=== PATIENT | male | born 1940 | race Caucasian/White ===

== ENCOUNTER 2020-02-03 16:02 | Inpatient (IN) ==
[2020-02-03 18:07] LABS: Hematocrit 46.7 % (40.1-51.0); Hemoglobin 15.3 g/dL (13.7-17.5); Mean Cell Volume 97.3 fL (80.0-100.0); Mean Corpuscular HGB Conc 32.8 g/dL (31.0-36.0); Mean Platelet Volume 8.6 fL (7.4-10.4); Platelet Count 205 K/mcL (140-440); Red Cell Distribution Width 14.1 % (11.5-14.5); WBC 7.8 K/mcL (4.50-11.00)
[2020-02-03 18:26] LABS: ALT/SGPT 34 U/l (0-40); AST/SGOT 28 U/l (0-37); Albumin 4.1 gm/dL (3.2-5.2); Albumin/Globulin Ratio 1.3 (1.0-2.3); Alkaline Phosphatase 227 U/L (39-117); Bilirubin,Total 0.5 mg/dL (0.0-1.0); Blood Urea Nitrogen 25 mg/dl (8-23); Calcium 9.1 mg/dl (8.6-10.4); Carbon Dioxide 27 mmol/L (22-30); Chloride 97 mmol/L (96-108); Globulin 3.2 gm/dL (2.2-3.7); Glomerular Filtration Rate 80; Glucose 85 mg/dL (70-105)
[2020-02-03 18:36] LABS: Basophils % (Manual) 1 % (0-2); Eosinophils % (Manual) 3 % (0-7); Lymphocytes % 4 % (15-49); Monocytes % (Manual) 12 % (1-12); Platelet Estimate NORMAL (NORMAL); RBC Morphology NORMAL (NORMAL); Reactive Lymphocytes 3 % (0-2); Segmented Neutrophils % 77 % (38-78)
[2020-02-03] MEDS ORDERED: cefTRIAXone 1 GM VIAL IV ONE (18:41)
--- NOTE | 2020-02-03 18:50 | Emergency Department Note ---
Lower Extremity Injury HPI General Chief Complaint: Extremity Injury, Lower Stated Complaint: left foot problem Time Seen by Provider: 02/03/20 16:13 Source: patient Mode of arrival: wheelchair Limitations: no limitations History of Present Illness HPI Narrative: Narrative: left great toe pain, black, and redness and swelling spreading up leg now. Has been seen at wound care and has appt in 2 days to have toe removed. Has gotten much worse in last couple days. Called wound care and they told him to come to ER. He does note significant pain to the affected toe and foot. No fever or chills. No nausea, vomiting, or diarrhea. Extremely foul odor coming from foot. Daughter states she just got here yesterday and was very concerned about the status of it. Related Data Home Medications Medication Instructions Recorded Confirmed diltiazem HCl 360 mg PO QDAY 01/29/20 01/29/20 furosemide 40 mg PO QDAY 01/29/20 01/29/20 magnesium oxide 400 mg PO QDAY 01/29/20 01/29/20 meclizine 25 mg PO BID PRN 01/29/20 01/29/20 multivitamin with minerals [Daily 1 tab PO QDAY 01/29/20 01/29/20 Multivitamin-Minerals] phenytoin sodium extended 300 mg PO DAILY 01/29/20 01/29/20 potassium chloride 10 meq PO QDAY 01/29/20 01/29/20 potassium gluconate 550 mg PO QDAY 01/29/20 01/29/20 tramadol 50 - 100 mg PO Q8H PRN 01/29/20 01/29/20 trazodone 50 mg PO QDAY 01/29/20 01/29/20 valsartan 80 mg PO QDAY 01/29/20 01/29/20 vit C,B-Gj-ywsby-lutein-zeaxan 1 tab PO BID 01/29/20 01/29/20 [PreserVision AREDS-2] warfarin 2 mg PO QDAY 01/29/20 01/29/20 Allergies Allergy/AdvReac Type Severity Reaction Status Date / Time No Known Drug Allergies Allergy Verified 02/03/20 16:04 Review of Systems ROS ROS Narrative: Narrative: All systems ED: reviewed and negative except as stated. PFSH Narrative Patient History Narrative: Narrative: Poor historian and no past medical records available currently. He denies being diabetic. Medical/Surgical/Family History All Active Problems (Updated 02/03/20 @ 18:59 by ROSEANNE Quiros) Smoker (Acute) Atrial fibrillation (Acute) Mitral stenosis (Acute) Sleep apnea (Acute) Hypertension (Acute) COPD (chronic obstructive pulmonary disease) (Acute) Alcoholism (Acute) Inguinal hernia, right (Acute) Seizure (Acute) Necrosis of toe (Acute) Left leg cellulitis (Acute) Social History Smoking Status: Heavy tobacco smoker Substance Use: does not use Exam Narrative Narrative: Narrative: General Limitations: no limitations General appearance: alert Head Head: atraumatic and normocephalic Chest Chest: Present symmetric chest wall rise Respiratory Respiratory: Present normal lung sounds bilaterally and wheezes (faint e xpiratory wheezes otherwise clear throughout. Smoker's cough); Absent respi ratory distress, rales/crackles, stridor and accessory muscle use Cardiovascular Cardiovascular: Present regular rate and normal rhythm Extremities Extremities: Absent normal inspection (Left foot and ankle with diffuse redness, swelling, and warmth throughout. Cap refill 2 seconds. The left great toe with extremely foul odor present and shriveled up and black) Neurological Neurological: Present alert and oriented X3 Psychiatric Psychiatric: Present normal affect and normal mood Course Course Course Narrative: At 1840 I did speak with Dr. jenny hernandez with wound care. He would like us to consult with the hospitalist to try to get this patient admitted and keep him n.p.o. after midnight, give him IV antibiotics, and plan for surgery in the morning. @ 1903 I did speak with hospitalist, Dr. Rea who agrees to accept this patient Vital Signs Vital signs: Vital Signs Temperature 96.6 F L 02/03/20 16:02 Pulse Rate 80 02/03/20 16:02 Respiratory Rate 16 02/03/20 16:02 Blood Pressure 136/65 02/03/20 16:02 Temperature 96.6 F L 02/03/20 16:02 Pulse Rate 80 02/03/20 16:02 Respiratory Rate 16 02/03/20 16:02 Blood Pressure 147/75 02/03/20 18:45 MDM MDM Narrative Medical decision making narrative: Narrative: Lab Data Lab results reviewed: Yes I reviewed the patient's lab results. Result diagrams: 02/03/20 17:16 02/03/20 17:16 Labs: Lab Results 02/03/20 02/03/20 02/03/20 Range/Units 17:16 17:16 17:16 WBC 7.8 (4.50-11.00) K/mcL RBC 4.80 (4.63-6.08) M/mcL Hgb 15.3 (13.7-17.5) g/dL Hct 46.7 (40.1-51.0) % MCV 97.3 (80.0-100.0) fL MCH 31.9 (26.0-34.0) pg MCHC 32.8 (31.0-36.0) g/dL RDW 14.1 (11.5-14.5) % Plt Count 205 (140-440) K/mcL MPV 8.6 (7.4-10.4) fL Total Counted 100 Seg Neutrophils % 77 (38-78) % Band Neutrophils % Not Reportable Lymphocytes % 4 L (15-49) % Monocytes % (Manual) 12 (1-12) % Eosinophils % (Manual) 3 (0-7) % Basophils % (Manual) 1 (0-2) % Reactive Lymphocytes 3 H (0-2) % Platelet Estimate Normal (NORMAL) RBC Morphology Normal (NORMAL) PT INR VBG Lactic Acid 1.2 (0.5-2.0) mmol/L Sodium 139 (133-145) mmol/L Potassium 4.4 (3.3-5.1) mmol/L Chloride 97 (96-108) mmol/L Carbon Dioxide 27 (22-30) mmol/L Anion Gap 15.0 (8-16) BUN 25 H (8-23) mg/dl Creatinine 0.9 (0.7-1.2) mg/dl GFR Calculation 80 Glucose 85 (70-105) mg/dL Calcium 9.1 (8.6-10.4) mg/dl Total Bilirubin 0.5 (0.0-1.0) mg/dL AST 28 (0-37) U/l ALT 34 (0-40) U/l Alkaline Phosphatase 227 H (39-117) U/L C-Reactive Protein 4.0 H (0.0-0.8) mg/dl Total Protein 7.3 (5.9-8.4) gm/dL Albumin 4.1 (3.2-5.2) gm/dL Globulin 3.2 (2.2-3.7) gm/dL Albumin/Globulin Ratio 1.3 (1.0-2.3) 02/03/20 Range/Units 17:16 WBC (4.50-11.00) K/mcL RBC (4.63-6.08) M/mcL Hgb (13.7-17.5) g/dL Hct (40.1-51.0) % MCV (80.0-100.0) fL MCH (26.0-34.0) pg MCHC (31.0-36.0) g/dL RDW (11.5-14.5) % Plt Count (140-440) K/mcL MPV (7.4-10.4) fL Total Counted Seg Neutrophils % (38-78) % Band Neutrophils % Lymphocytes % (15-49) % Monocytes % (Manual) (1-12) % Eosinophils % (Manual) (0-7) % Basophils % (Manual) (0-2) % Reactive Lymphocytes (0-2) % Platelet Estimate (NORMAL) RBC Morphology (NORMAL) PT TNP INR TNP VBG Lactic Acid (0.5-2.0) mmol/L Sodium (133-145) mmol/L Potassium (3.3-5.1) mmol/L Chloride (96-108) mmol/L Carbon Dioxide (22-30) mmol/L Anion Gap (8-16) BUN (8-23) mg/dl Creatinine (0.7-1.2) mg/dl GFR Calculation Glucose (70-105) mg/dL Calcium (8.6-10.4) mg/dl Total Bilirubin (0.0-1.0) mg/dL AST (0-37) U/l ALT (0-40) U/l Alkaline Phosphatase (39-117) U/L C-Reactive Protein (0.0-0.8) mg/dl Total Protein (5.9-8.4) gm/dL Albumin (3.2-5.2) gm/dL Globulin (2.2-3.7) gm/dL Albumin/Globulin Ratio (1.0-2.3) Discharge Plan Patient/Caregiver Discharge Instructions Pt seen by PALLETIZER OPERATOR/PA only: Yes Clinical Impression: Necrosis of toe, Left leg cellulitis Patient Disposition: Xfer As Outpt/Obs ([facility]) Condition: Fair Follow up with: Steve Francis MD [Primary Care Provider] - Prescriptions: No Action furosemide 40 mg Tablet 40 mg PO QDAY RF: 0 potassium chloride 10 mEq Capsule, Extended Release 10 meq PO QDAY RF: 0 trazodone 50 mg Tablet 50 mg PO QDAY RF: 0 valsartan 80 mg Tablet 80 mg PO QDAY RF: 0 diltiazem HCl 360 mg Capsule,Extended Release 24 Hr 360 mg PO QDAY RF: 0 phenytoin sodium extended 100 mg Capsule 300 mg PO DAILY RF: 0 tramadol 50 mg Tablet 50 - 100 mg PO Q8H PRN (Reason: Pain) RF: 0 magnesium oxide 400 mg (241.3 mg magnesium) Tablet 400 mg PO QDAY RF: 0 meclizine 25 mg Tablet 25 mg PO BID PRN (Reason: Nausea) RF: 0 warfarin 2 mg Tablet 2 mg PO QDAY RF: 0 multivitamin with minerals [Daily Multivitamin-Minerals] Tablet 1 tab PO QDAY RF: 0 potassium gluconate 550 mg (90 mg) Tablet 550 mg PO QDAY RF: 0 PreserVision AREDS-2 [id number] [id number] Capsule 1 tab PO BID RF: 0
[2020-02-03] MEDS ORDERED: ONDANSETRON 4 MG/2 ML VIAL IV PRN (19:11)
[2020-02-03] MEDS ORDERED: HYDROmorphone 0.5 MG/0.5 ML SYRINGE IV PRN (19:11)
[2020-02-03] MEDS ORDERED: LORazepam 2 MG/ML VIAL IV PRN ×2 (19:17→22:46)
[2020-02-03] MEDS ORDERED: LORazepam 2 MG/ML VIAL IV ONE (19:17)
[2020-02-03 19:35] LABS: INR 1.1 (0.9-1.1); Prothrombin Time 14.7 sec (11.9-14.5)
--- NOTE | 2020-02-03 20:37 | General Surgery Consult Note ---
HPI Data of Consult Primary Care Provider: Steve Francis Consult Narrative Patient Information: Note initiated : 02/03/20 at 8:17 pm Service Date, if different from initiated Date: [] Patient: Jt Gann 79 y/o M admitted on 02/03/20 for left foot problem. Chief Complaint: [] cc:: CC: Reshma Rea I saw this patient on Med/Surg floor along with Viola ALLEN and patient's daughter in the room. This is an established patient at wound care clinic. He is admitted with dry gangrene of left great toe, now presenting with sepsis and cellulitis of foot and leg. This started few days ago, when his toe nail was excised by his PCP Dr. Herndon. This is an 79 year old man with PAD, A fib, Mitral Stenosis, COPD, FRANCESCO, Seizure disorder, Alcoholism and Chronic smoker. He was in his usual state of health, until this morning. His daughter was concerned about swelling warmth, redness of foot now spreading to leg. Patient evaluated in ER and now admitted to MedSurg floor. He needs transmetatarsal amputation of toe. PFSH PFSH Social History smoking status: Heavy tobacco smoker substance use type: does not use MEDS/ALLERGIES Home Medications and Allergies Home Medications Medication Instructions Recorded Confirmed Type diltiazem HCl 360 mg PO QDAY 01/29/20 01/29/20 History furosemide 40 mg PO QDAY 01/29/20 01/29/20 History magnesium oxide 400 mg PO QDAY 01/29/20 01/29/20 History meclizine 25 mg PO BID PRN 01/29/20 02/03/20 History multivitamin with minerals [Daily 1 tab PO QDAY 01/29/20 01/29/20 History Multivitamin-Minerals] phenytoin sodium extended 300 mg PO DAILY 01/29/20 01/29/20 History potassium chloride 10 meq PO QDAY 01/29/20 01/29/20 History potassium gluconate 550 mg PO QDAY 01/29/20 01/29/20 History tramadol 50 - 100 mg PO Q8H PRN 01/29/20 01/29/20 History trazodone 50 mg PO HS 01/29/20 02/03/20 History valsartan 80 mg PO QDAY 01/29/20 01/29/20 History vit C,G-Vz-cznrx-lutein-zeaxan 1 tab PO BID 01/29/20 01/29/20 History [PreserVision AREDS-2] warfarin 2 mg PO QDAY 01/29/20 01/29/20 History Allergies Allergy/AdvReac Type Severity Reaction Status Date / Time No Known Drug Allergies Allergy Verified 02/03/20 16:04 Physical Examination Vital Signs Vital signs: Temp Pulse Resp BP Pulse Ox 97.5 F 101 H 16 183/94 91 02/03/20 19:55 02/03/20 19:55 02/03/20 19:55 02/03/20 19:55 02/03/20 19:55 General physical appearance General physical exam: no distress, moderate pain, chronically ill and other (Emphysematous) Eyes Eye exam: PERRL and normal ocular movement ENT ENT exam: normal pinna, normal nares, no congestion and decreased hearing Head Head exam IM: Present atraumatic and normal inspection Neck Neck exam: no masses and no venous distension Cardiovascular Cardiovascular exam IM: Present diastolic murmur Peripheral pulses: 0: dorsalis pedis (L) and posterior tibialis (L) Respiratory Respiratory exam: normal respiratory effort and clear to auscultation Abdomen Abdomen: Present soft, non tender and bowel sounds Integumentary Integumentary: Present other (Dry gangrene of toe demarcating at MPJ. Associated with edema, warmth and cellulitis of foot and leg and non palpable pedal pulses) Neurologic Neurologic: Present other (Non focal neurological examination. No lateralising signs) Musculoskeletal Musculoskeletal: Present other (Wheel chair and Non weight bearing on left foot) Psychiatric Psychiatric: Present oriented to time, oriented to person, oriented to place, speech is normal, memory intact and other (Heavy cigarettre smoker and does NOT want to quit,) Results Labs Result diagrams: 02/03/20 17:16 02/03/20 17:16 Labs: Abnormal lab results 02/03/20 02/03/20 02/03/20 Range/Units 17:16 17:16 19:03 Lymphocytes % 4 L (15-49) % Reactive Lymphocytes 3 H (0-2) % PT 14.7 H (11.9-14.5) sec BUN 25 H (8-23) mg/dl Alkaline Phosphatase 227 H (39-117) U/L C-Reactive Protein 4.0 H (0.0-0.8) mg/dl Diabetes panel 02/03/20 Range/Units 17:16 Sodium 139 (133-145) mmol/L Potassium 4.4 (3.3-5.1) mmol/L Chloride 97 (96-108) mmol/L Carbon Dioxide 27 (22-30) mmol/L BUN 25 H (8-23) mg/dl Creatinine 0.9 (0.7-1.2) mg/dl Glucose 85 (70-105) mg/dL Calcium 9.1 (8.6-10.4) mg/dl AST 28 (0-37) U/l ALT 34 (0-40) U/l Alkaline Phosphatase 227 H (39-117) U/L Total Protein 7.3 (5.9-8.4) gm/dL Albumin 4.1 (3.2-5.2) gm/dL Calcium panel 02/03/20 Range/Units 17:16 Calcium 9.1 (8.6-10.4) mg/dl Albumin 4.1 (3.2-5.2) gm/dL Pituitary panel 02/03/20 Range/Units 17:16 Sodium 139 (133-145) mmol/L Potassium 4.4 (3.3-5.1) mmol/L Chloride 97 (96-108) mmol/L Carbon Dioxide 27 (22-30) mmol/L BUN 25 H (8-23) mg/dl Creatinine 0.9 (0.7-1.2) mg/dl Glucose 85 (70-105) mg/dL Calcium 9.1 (8.6-10.4) mg/dl Adrenal panel 02/03/20 Range/Units 17:16 Sodium 139 (133-145) mmol/L Potassium 4.4 (3.3-5.1) mmol/L Chloride 97 (96-108) mmol/L Carbon Dioxide 27 (22-30) mmol/L BUN 25 H (8-23) mg/dl Creatinine 0.9 (0.7-1.2) mg/dl Glucose 85 (70-105) mg/dL Calcium 9.1 (8.6-10.4) mg/dl Total Bilirubin 0.5 (0.0-1.0) mg/dL AST 28 (0-37) U/l ALT 34 (0-40) U/l Alkaline Phosphatase 227 H (39-117) U/L Total Protein 7.3 (5.9-8.4) gm/dL Albumin 4.1 (3.2-5.2) gm/dL All other labs normal. A/P Narrative A/P Narrative: Assessment: Gangrene LEFT great toe with cellulitis of foot and leg. Plan: Pre operative work up, IV antibiotics Provisionally for surgery LEFT great toe amputation on 02/04/2020 Time Spent With Patient Time: Total time spent is greater than 50% in coordination of care (as documented) at patient's floor/unit and/or counseling patient: Total time spent with greater than 50% in coordination of care (as documented) at patient's floor/unit and/or counseling patient:: Greater than 35 minutes
[2020-02-03] MEDS: NICOTINE 21 MG PATCH TOPICAL SCH (21:21)
[2020-02-03] MEDS ORDERED: 0.9 % SODIUM CHLORIDE 1,000 ML IV SCH (22:30)
[2020-02-03] MEDS ORDERED: cefTRIAXone 1 GM in DEXTROSE 5% IN WATER 50 ML IV SCH (22:30)
[2020-02-03] MEDS ORDERED: VANCOMYCIN PER PHARMACY IV ONE (22:39)
--- NOTE | 2020-02-03 23:09 | Internal Med History&Physical ---
HPI History of Present Illness Patient information: Note initiated : 02/03/20 at 10:49 pm Service Date, if different from initiated Date: [] Patient: Jt Gann a 79 y/o M admitted on 02/03/20 for left foot problem. Chief Complaint: [] Chief complaint: gangrene toe History of present illness: Mr. Gann is a 79 year old M with a hx of A fib, mitral Stenosis, COPD, FRANCESCO, Seizure disorder, Alcoholism, PAD and Chronic smoker who was admitted to hospital by wound care Dr. Santiago for dry gangrene of left great toe. Patient is a poor historian. He is a established wound care clinic patient and to have been followed by Dr. Santiago. His daughter noticed that his left leg has been red over the past few days. But when I saw this patient in his room, he denied leg pain, fever, chills, nausea, vomiting, headache, dizziness, chest pain, or dysuria. He admitted he is a current smoker but he denied drinking alcohol even though he has been abusing alcohol from his medical chart. He was a scheduled to have transmetatarsal amputation of toe tomorrow by Dr. Santiago. Review of Systems All systems: reviewed and no additional remarkable complaints except as stated PFSH PFSH Social History smoking status: Current every day smoker substance use type: does not use MEDS/ALLERGIES Home Medications and Allergies Home Medications Medication Instructions Recorded Confirmed Type diltiazem HCl 360 mg PO QDAY 01/29/20 02/03/20 History furosemide 40 mg PO QDAY 01/29/20 02/03/20 History magnesium oxide 400 mg PO QDAY 01/29/20 02/03/20 History meclizine 25 mg PO BID PRN 01/29/20 02/03/20 History multivitamin with minerals [Daily 1 tab PO QDAY 01/29/20 02/03/20 History Multivitamin-Minerals] phenytoin sodium extended 300 mg PO DAILY 01/29/20 02/03/20 History potassium chloride 10 meq PO QDAY 01/29/20 02/03/20 History potassium gluconate 550 mg PO QDAY 01/29/20 02/03/20 History tramadol 50 - 100 mg PO Q8H PRN 01/29/20 02/03/20 History trazodone 50 mg PO HS 01/29/20 02/03/20 History valsartan 80 mg PO QDAY 01/29/20 02/03/20 History vit C,B-Hc-mdbtc-lutein-zeaxan 1 tab PO BID 01/29/20 02/03/20 History [PreserVision AREDS-2] warfarin 2 mg PO QDAY 01/29/20 02/03/20 History Allergies Allergy/AdvReac Type Severity Reaction Status Date / Time No Known Drug Allergies Allergy Verified 02/03/20 16:04 EXAM Constitutional Vitals: Temp Pulse Resp BP Pulse Ox 97.5 F 101 H 16 183/94 91 02/03/20 19:55 02/03/20 19:55 02/03/20 19:55 02/03/20 19:55 02/03/20 19:55 Additional findings Additional findings: General - No acute distress Eyes - PERRLA, EOM intact ENT no rhinorrhea, no noticeable or palpable swelling, no redness or rash around throat or on face Neck supple, no JVD, no thyromegaly Respiratory: Lungs -clear, no wheezing or crackles. Cardiovascular - RRR no m/r/g, GI - Normal bowel sounds, no distended, soft. Extremeties - left foot was wrapped. Left leg erythema and warmth. No cyanosis or clubbing Hemo/lymphatic/immune no lymphadenopathy Neurological Alert and oriented x 3, no focal neurological deficits. Psychiatry flat affect DATA Data Completed and Pending Labs on day of discharge: Labs from last 24 hours 02/03/20 02/03/20 02/03/20 22:06 19:03 17:16 WBC RBC Hgb Hct MCV MCH MCHC RDW Plt Count MPV Total Counted Seg Neutrophils % Band Neutrophils % Lymphocytes % Monocytes % (Manual) Eosinophils % (Manual) Basophils % (Manual) Reactive Lymphocytes Platelet Estimate RBC Morphology PT 14.7 H TNP INR 1.1 TNP VBG Lactic Acid Sodium Potassium Chloride Carbon Dioxide Anion Gap BUN Creatinine GFR Calculation Glucose Calcium Total Bilirubin AST ALT Alkaline Phosphatase C-Reactive Protein Total Protein Albumin Globulin Albumin/Globulin Ratio COVID-19 PCR Pending 02/03/20 02/03/20 02/03/20 17:16 17:16 17:16 WBC 7.8 RBC 4.80 Hgb 15.3 Hct 46.7 MCV 97.3 MCH 31.9 MCHC 32.8 RDW 14.1 Plt Count 205 MPV 8.6 Total Counted 100 Seg Neutrophils % 77 Band Neutrophils % Not Reportable Lymphocytes % 4 L Monocytes % (Manual) 12 Eosinophils % (Manual) 3 Basophils % (Manual) 1 Reactive Lymphocytes 3 H Platelet Estimate Normal RBC Morphology Normal PT INR VBG Lactic Acid 1.2 Sodium 139 Potassium 4.4 Chloride 97 Carbon Dioxide 27 Anion Gap 15.0 BUN 25 H Creatinine 0.9 GFR Calculation 80 Glucose 85 Calcium 9.1 Total Bilirubin 0.5 AST 28 ALT 34 Alkaline Phosphatase 227 H C-Reactive Protein 4.0 H Total Protein 7.3 Albumin 4.1 Globulin 3.2 Albumin/Globulin Ratio 1.3 COVID-19 PCR A/P Narrative A/P Narrative: 1. Dry gangrene of left great toe XRay wound culture Scheduled to have transmetatarsal amputation of toe by Dr. Santiago tomorrow. Would really appreciate it. RCRI - 6.0 % 30-day risk of , NE, or cardiac arrest He has COPD and sleep apnea which would be a adverse factor for anesthesia. N.p.o. after midnight 2. Cellulitis, left foot and leg Blood culture Vancomycin (dosing by pharmacy) and Rocephin 3. Chronic hypoxic respiratory failure 4. COPD Pulse ox Inhalers Oxygen therapy 5. Current smoker Counseling, nicotine patch 6. Atrial fibrillation Heart rate controlled Continue diltiazem Warfarin 2 mg daily is on hold due to procedure. But his INR 1.1. He may not take his warfarin as prescribed. 7. HTN Continue diltiazem and STEPHIE inhibitor 8. Alcoholism CIWA protocol Ativan as needed 9. PAD Statin will start aspirin after procedure 10. DVT prophylaxis: Warfarin is on hold due to procedure. Time Spent With Patient Time: Total time spent is greater than 50% in coordination of care (as d ocumented) at patient's floor/unit and/or counseling patient: QUALITY VTE Deep Vein Thrombosis/Pulmonary Embolism Present on Admission: No
[2020-02-04] MEDS: 0.9 % SODIUM CHLORIDE 1,000 ML IV SCH ×3 (01:15→18:11)
[2020-02-04] MEDS: VANCOMYCIN 1,000 MG in 0.9 % SODIUM CHLORIDE 250 ML IV ONE ×2 (01:16→01:27)
[2020-02-04] MEDS: IPRATROPIUM/ALBUTEROL 3 ML AMPUL.NEB NEB SCH ×4 (01:20→20:04)
[2020-02-04] MEDS ORDERED: IPRATROPIUM/ALBUTEROL 3 ML AMPUL.NEB NEB ONE ×2 (01:23→06:31)
[2020-02-04] MEDS: 0.9 % SODIUM CHLORIDE 10 ML SYRINGE IV SCH ×3 (04:05→21:30)
--- NOTE | 2020-02-04 04:53 | XRay Report ---
CLINICAL INFORMATION: necrotic great toe COMPARISON: 12/13/2019 FINDINGS: There is patchy osteolysis within the first distal phalanx with erosive changes along the lateral cortex of the tuft and base. Findings suspicious for osteomyelitis. A 5 mm intramedullary region of trabecular rarefaction, in the third proximal phalanx base, is likely a cyst or focal demineralization. Moderate degenerative change seen at all interphalangeal joints. Forefoot soft tissue swelling noted. IMPRESSION: Patchy osteolysis of the first distal phalanx suspicious for osteomyelitis. Forefoot soft tissue swelling compatible with associated cellulitis or edema. Interpreted and Authenticated by: Asad Simpson 02/04/20
[2020-02-04] MEDS ORDERED: VANCOMYCIN PER PHARMACY IV SCH ×2 (07:00→18:04)
[2020-02-04 07:02] LABS: Basophils # (Auto) 0.05 K/mcL (0.00-0.30); Basophils % (Auto) 0.7 % (0.0-2.0); Eosinophils % (Auto) 2.9 % (0.0-7.0); Hematocrit 43.4 % (40.1-51.0); Hemoglobin 14.6 g/dL (13.7-17.5); Lymphocytes # (Auto) 0.75 K/mcL (1.50-4.80); Lymphocytes % (Auto) 10.7 % (15.5-49.0); Mean Corpuscular HGB Conc 33.6 g/dL (31.0-36.0); Mean Platelet Volume 8.6 fL (7.4-10.4); Monocytes # (Auto) 0.75 K/mcL (0.10-0.90); Monocytes % (Auto) 10.7 % (1.0-12.0); Platelet Count 198 K/mcL (140-440); RBC 4.52 M/mcL (4.63-6.08); Red Cell Distribution Width 14.1 % (11.5-14.5)
[2020-02-04 07:07] LABS: Prothrombin Time 13.8 sec (11.9-14.5)
[2020-02-04 07:41] LABS: Dilantin Test 15.8 ug/mL
[2020-02-04 07:47] LABS: ALT/SGPT 29 U/l (0-40); AST/SGOT 25 U/l (0-37); Albumin 3.8 gm/dL (3.2-5.2); Albumin/Globulin Ratio 1.3 (1.0-2.3); Alkaline Phosphatase 207 U/L (39-117); Bilirubin,Total 0.5 mg/dL (0.0-1.0); Blood Urea Nitrogen 22 mg/dl (8-23); Calcium 8.8 mg/dl (8.6-10.4); Carbon Dioxide 25 mmol/L (22-30); Chloride 99 mmol/L (96-108); Globulin 2.9 gm/dL (2.2-3.7); Glomerular Filtration Rate 84; Glucose 84 mg/dL (70-105); Phosphorous 3.1 mg/dL (2.7-4.5)
[2020-02-04] MEDS ORDERED: VITAMIN B COMPLEX 1 CAPSULE PO SCH (09:00)
[2020-02-04] MEDS ORDERED: cefTRIAXone 1 GM VIAL IV SCH (09:00)
[2020-02-04] MEDS ORDERED: DOCUSATE SODIUM 100 MG CAPSULE PO SCH (09:00)
[2020-02-04] MEDS ORDERED: LOSARTAN 50 MG TABLET PO SCH (09:00)
[2020-02-04] MEDS ORDERED: PHENYTOIN SOD 100 MG CAPSULE PO SCH (09:00)
[2020-02-04] MEDS ORDERED: ATORVASTATIN 40 MG TABLET PO SCH (09:00)
[2020-02-04] MEDS ORDERED: MULTIVIT,THER IRON,CA,FA & MIN 1 TABLET PO SCH (09:00)
[2020-02-04] MEDS ORDERED: DILTIAZEM 180 MG CAP.XL.24H PO SCH (09:00)
[2020-02-04] MEDS ORDERED: VANCOMYCIN 1,000 MG in 0.9 % SODIUM CHLORIDE 250 ML IV SCH (10:00)
[2020-02-04] MEDS ORDERED: NICOTINE 21 MG PATCH TOPICAL SCH (10:00)
[2020-02-04] MEDS: THIAMINE 100 MG TABLET PO SCH ×3 (10:10→21:29)
[2020-02-04] MEDS: NICOTINE 21 MG PATCH TOPICAL SCH (10:11)
--- NOTE | 2020-02-04 12:33 | Internal Med Progress Note ---
SUBJECTIVE Subjective Patient information: Note initiated : 02/04/20 at 12:25 pm Service Date, if different from initiated Date: [] Patient: Jt Gann 79 y/o M admitted on 02/03/20 for left foot problem. Chief Complaint: [] Interval history: Mr. Gann is a 79 year old M with a hx of A fib, mitral Stenosis, COPD, FRANCESCO, Seizure disorder, Alcoholism, PAD and Chronic smoker who was admitted to hospital by wound care Dr. Santiago for dry gangrene of left great toe. Patient is a poor historian. He is a established wound care clinic patient and to have been followed by Dr. Santiago. His daughter noticed that his left leg has been red over the past few days. But when I saw this patient in his room, he denied leg pain, fever, chills, nausea, vomiting, headache, dizziness, chest pain, or dysuria. He admitted he is a current smoker but he denied drinking alcohol even though he has been abusing alcohol from his medical chart. He was a scheduled to have transmetatarsal amputation of toe tomorrow by Dr. Santiago. 02/03 Patient does not have any new complaints. He is on 3 L. X-ray left foot showed Patchy osteolysis of the first distal phalanx suspicious for osteomyelitis. He was scheduled to have transmetatarsal amputation of toe by Dr. Santiago Review of Systems All systems: reviewed and no additional remarkable complaints except as stated Constitutional Vitals: Vital Signs Temp Pulse Resp BP Pulse Ox 97.7 F 90 16 134/73 98 02/04/20 07:00 02/04/20 07:00 02/04/20 07:00 02/04/20 07:00 02/04/20 07:00 Period Temp Pulse Resp BP Sys/Min Pulse Ox Last 24 Hr 96.6 F-97.9 F 80-107 16-16 115-183/63-94 91-98 Intake and Output 02/03/20 02/04/20 02/04/20 21:59 05:59 13:59 Intake Total 240 Output Total 200 200 Balance -200 240 -200 Weight 64.818 kg 64.818 kg Patient Weight 02/05/20 05:59 Weight 64.818 kg Intake & Output: Intake & Output 02/03/20 02/04/2020 21:59 05:59 13:59 Intake Total 240 Output Total 200 200 Balance -200 240 -200 Weight 64.818 kg 64.818 kg Intake: Oral 240 Output: Void Amount 200 200 Other: Meal Dinner Percent of Meal Consumed 100% Feeding Ability Independent Urine Appearance Clear Urine Color Bright Yellow # Voids 1 Additional findings Additional findings: General - No acute distress Eyes - PERRLA, EOM intact ENT no rhinorrhea, no noticeable or palpable swelling, no redness or rash around throat or on face Neck supple, no JVD, no thyromegaly Respiratory: Lungs -clear, no wheezing or crackles. Cardiovascular - RRR no m/r/g, GI - Normal bowel sounds, no distended, soft. Extremeties - left foot was wrapped. Left leg erythema and warmth. No cyanosis or clubbing Hemo/lymphatic/immune no lymphadenopathy Neurological Alert and oriented x 3, no focal neurological deficits. Psychiatry flat affect OBJ DATA Labs CBC & Chem 7: 02/04/20 05:50 02/04/20 05:50 Labs: Abnormal Lab Results 02/04/20 02/04/20 02/03/20 05:50 05:50 19:03 RBC 4.52 L Lymph % (Auto) 10.7 L Lymph # (Auto) 0.75 L Lymphocytes % Reactive Lymphocytes PT 14.7 H BUN Alkaline Phosphatase 207 H C-Reactive Protein NT-Pro-B Natriuret Pep 1422.0 H 02/03/20 02/03/20 17:16 17:16 RBC Lymph % (Auto) Lymph # (Auto) Lymphocytes % 4 L Reactive Lymphocytes 3 H PT BUN 25 H Alkaline Phosphatase 227 H C-Reactive Protein 4.0 H NT-Pro-B Natriuret Pep Meds: Medications Albuterol/Ipratropium (Duoneb) 3 ml NEB Q6HRT [facility] Last Admin: 02/04/20 06:29 Dose: Not Given Documented by: Atorvastatin Calcium (Lipitor) 40 mg PO DAILY [facility] Last Admin: 02/04/20 10:09 Dose: 40 mg Documented by: Ceftriaxone Sodium (Rocephin) 1 gm IV Q24H [facility] Last Admin: 02/04/20 10:10 Dose: 1 gm Documented by: Diltiazem HCl (Cardizem Cd) 360 mg PO QDAY [facility] Last Admin: 02/04/20 09:58 Dose: 360 mg Documented by: Docusate Sodium (Colace) 100 mg PO BID [facility] Last Admin: 02/04/20 09:59 Dose: 100 mg Documented by: Hydromorphone HCl (Dilaudid) 0.5 mg IV Q2HP PRN; Protocol PRN Reason: Per Pain Protocol Sodium Chloride (Sodium Chloride 0.9%) 1,000 mls @ 75 mls/hr IV .[id number] [facility] Last Admin: 02/04/20 01:15 Dose: 75 mls/hr Documented by: Vancomycin HCl 1,000 mg/ (Sodium Chloride) 250 mls @ 250 mls/hr IV Q12H [facility] Last Admin: 02/04/20 10:11 Dose: 250 mls/hr Documented by: Iron Carb/Multivit/[place]/Folic Acid (Multivitamin W/Minerals) 1 tab PO BID [facility] Stop: 02/08/20 21:01 Last Admin: 02/04/20 10:09 Dose: 1 tab Documented by: Lorazepam (Ativan) 0.5 mg IV Q2HP PRN PRN Reason: Alcohol Withdrawal Losartan Potassium (Cozaar) 50 mg PO QDAY [facility] Nicotine (Nicoderm) 21 mg TOPICAL DAILY@1000 [facility] Last Admin: 02/04/20 10:11 Dose: Not Given Documented by: Ondansetron HCl (Zofran) 4 mg IV Q4HP PRN PRN Reason: Nausea And Vomiting Phenytoin Sodium (Dilantin) 300 mg PO DAILY [facility] Last Admin: 02/04/20 09:56 Dose: 300 mg Documented by: Senna (Senokot) 2 tab PO [facility] Sodium Chloride (Saline Flush) 10 ml IV Q8 [facility] Last Admin: 02/04/20 04:05 Dose: Not Given Documented by: Thiamine HCl (Vitamin B1) 100 mg PO TID [facility] Stop: 02/06/20 21:01 Last Admin: 02/04/20 10:10 Dose: 100 mg Documented by: Trazodone HCl (Desyrel) 50 mg PO HS [facility] Vancomycin HCl (Vancomycin Per Pharmacy) 1 order IV UD [facility]; Protocol Vitamin B Complex (Vitamin B Complex) 1 cap PO BID [facility] Stop: 02/08/20 21:01 Last Admin: 02/04/20 10:00 Dose: 1 cap Documented by: A/P Narrative A/P Narrative: 1. Dry gangrene of left great toe, phalanx osteomyelitis XRay - Patchy osteolysis of the first distal phalanx suspicious for osteomyelitis. wound culture Scheduled to have transmetatarsal amputation of toe by Dr. Santiago tomorrow. Would really appreciate it. Postop management including DVT prophylaxis and pain management by surgical team 2. Cellulitis, left foot and leg Blood culture Vancomycin (dosing by pharmacy) and Rocephin 3. Chronic hypoxic respiratory failure 4. COPD Pulse ox Inhalers Oxygen therapy, he is now on 3 L 5. Current smoker Counseling, nicotine patch 6. Atrial fibrillation Heart rate controlled Continue diltiazem Warfarin 2 mg daily is on hold due to procedure. But his INR 1.1 on admission. He may not take his warfarin as prescribed. 7. HTN Continue diltiazem and STEPHIE inhibitor 8. Alcoholism CIWA protocol Ativan as needed 9. PAD Statin will start aspirin after procedure 10. DVT prophylaxis: Warfarin is on hold due to procedure. Deposition: CM consulted. Time Spent With Patient Time: Total time spent is greater than 50% in coordination of care (as documented) at patient's floor/unit and/or counseling patient: QUALITY VTE Deep Vein Thrombosis/Pulmonary Embolism Present on Admission: No
[2020-02-04] MEDS ORDERED: PROPOFOL 200 MG/20 ML VIAL IV ONE (16:07)
[2020-02-04] MEDS ORDERED: fentaNYL 100 MCG/2 ML VIAL IV ONE (16:07)
[2020-02-04] MEDS ORDERED: KETAMINE 100 MG/ML ML IV ONE (16:07)
[2020-02-04] MEDS ORDERED: ONDANSETRON 4 MG/2 ML VIAL IV PRN ×3 (16:53→18:04)
[2020-02-04] MEDS ORDERED: IPRATROPIUM/ALBUTEROL 3 ML AMPUL.NEB NEB PRN ×2 (16:53→18:04)
[2020-02-04] MEDS ORDERED: fentaNYL 100 MCG/2 ML VIAL IV PRN ×2 (16:53→18:04)
[2020-02-04] MEDS ORDERED: LACTATED RINGERS 1,000 ML IV SCH ×2 (17:00→18:04)
[2020-02-04] MEDS ORDERED: BUPIVACAINE 0.5% 50 ML VIAL IJ ONE (17:10)
[2020-02-04] MEDS ORDERED: GENTAMICIN SULFATE 800 MG/20 ML VIAL IR ONE (17:11)
--- NOTE | 2020-02-04 17:22 | Brief Operative Note ---
Brief Operative Note Date of procedure: 02/04/20 Pre-op diagnosis: Gangrene LEFT great toe Post-op diagnosis: same Procedure: Amputation of toe through MP joint Grafts/Implants: No Anesthesia: local and other Findings: Sepsis with Gangrene of LEFT great toe and cellulitis of foot and leg. Complications: none Surgeon: Benny Martinez Estimated blood loss (cc): 10 Specimens Removed/Pathology: other Condition: stable Disposition: PACU
[2020-02-04] MEDS ORDERED: LORazepam 2 MG/ML VIAL IV PRN (18:04)
[2020-02-04] MEDS ORDERED: HYDROmorphone 0.5 MG/0.5 ML SYRINGE IV PRN (18:04)
[2020-02-04] MEDS ORDERED: traMADol 50 MG TABLET PO PRN (18:04)
[2020-02-04] MEDS ORDERED: MECLIZINE 25 MG TABLET PO PRN (18:53)
[2020-02-04] MEDS ORDERED: traZODone HCL 50 MG TABLET PO SCH (21:00)
[2020-02-04] MEDS ORDERED: SENNOSIDES 1 TABLET PO SCH (21:00)
[2020-02-04] MEDS: DOCUSATE SODIUM 100 MG CAPSULE PO SCH (21:28)
[2020-02-04] MEDS: traZODone HCL 50 MG TABLET PO SCH (21:28)
[2020-02-04] MEDS: SENNOSIDES 1 TABLET PO SCH (21:28)
[2020-02-04] MEDS: VITAMIN B COMPLEX 1 CAPSULE PO SCH (21:28)
[2020-02-04] MEDS: VIT A,C & E/LUTEIN/MINERALS TABLET PO SCH (21:28)
[2020-02-04] MEDS: MULTIVIT,THER IRON,CA,FA & MIN 1 TABLET PO SCH (21:28)
[2020-02-04] MEDS: VANCOMYCIN 1,000 MG in 0.9 % SODIUM CHLORIDE 250 ML IV SCH (21:30)
[2020-02-05] MEDS: IPRATROPIUM/ALBUTEROL 3 ML AMPUL.NEB NEB SCH ×4 (01:52→19:24)
[2020-02-05] MEDS: 0.9 % SODIUM CHLORIDE 10 ML SYRINGE IV SCH ×3 (04:12→21:32)
[2020-02-05 05:27] LABS: POC Blood Urea Nitrogen 20 mg/dl (8-23); POC CO2 24 mmol/L (22-30); POC Calcium, Ionized 1.05 mmol/L (1.16-1.32); POC Chloride 100 mmol/L (96-108); POC Creatinine 0.6 mg/dl (0.7-1.2); POC Glucose, Random 94 mg/dL (70-105); POC Potassium 4.1 mmol/L (3.3-5.1); POC Sodium 137 mmol/L (133-145)
[2020-02-05 06:50] LABS: Basophils # (Auto) 0.05 K/mcL (0.00-0.30); Basophils % (Auto) 0.5 % (0.0-2.0); Hematocrit 43.6 % (40.1-51.0); Hemoglobin 14.4 g/dL (13.7-17.5); Lymphocytes # (Auto) 0.54 K/mcL (1.50-4.80); Lymphocytes % (Auto) 5.7 % (15.5-49.0); Mean Cell Volume 98.4 fL (80.0-100.0); Mean Platelet Volume 8.6 fL (7.4-10.4); Monocytes # (Auto) 1.03 K/mcL (0.10-0.90); Monocytes % (Auto) 10.8 % (1.0-12.0); Platelet Count 183 K/mcL (140-440); RBC 4.43 M/mcL (4.63-6.08); WBC 9.6 K/mcL (4.50-11.00)
[2020-02-05] MEDS: POTASSIUM CHLORIDE 10 MEQ TABLET PO SCH (07:15)
[2020-02-05 07:18] LABS: ALT/SGPT 27 U/l (0-40); AST/SGOT 27 U/l (0-37); Albumin 3.7 gm/dL (3.2-5.2); Albumin/Globulin Ratio 1.3 (1.0-2.3); Alkaline Phosphatase 200 U/L (39-117); Bilirubin,Total 0.8 mg/dL (0.0-1.0); Blood Urea Nitrogen 18 mg/dl (8-23); Calcium 8.6 mg/dl (8.6-10.4); Carbon Dioxide 23 mmol/L (22-30); Chloride 100 mmol/L (96-108); Globulin 2.9 gm/dL (2.2-3.7); Glomerular Filtration Rate 89; Glucose 92 mg/dL (70-105)
[2020-02-05 07:19] LABS: Blood Urea Nitrogen 19 mg/dl (8-23); Calcium 8.6 mg/dl (8.6-10.4); Carbon Dioxide 22 mmol/L (22-30); Chloride 100 mmol/L (96-108); Glomerular Filtration Rate 84; Glucose 93 mg/dL (70-105)
--- NOTE | 2020-02-05 07:36 | Operative Note ---
DATE OF OPERATION: 02/04/2020 PREOPERATIVE DIAGNOSIS: Sepsis, gangrene, left great toe with cellulitis of foot and leg. POSTOPERATIVE DIAGNOSIS: Sepsis, gangrene, left great toe with cellulitis of foot and leg. OPERATION: Amputation of left great toe to MP joint. ANESTHESIA: Local with IV sedation. ANESTHESIOLOGIST: [facility]. SURGEON: Benny Martinez M.D. INDICATIONS: This is a patient with multiple comorbid medical problems and sepsis, admitted to the hospital via emergency room with gangrene of left great toe. This has been present for the past week or so. It started after excision of toenail. There was an interval change in his condition with development of acute constitutional symptoms and sepsis with odor around base of toe He was taken to emergency room, evaluated and admitted. . Preoperatively, patient was evaluated along with Anesthesiologist, Dr. Diaz. Risk, benefits, and complications were discussed. Informed consent was obtained for surgery from patient and his family member. I spoke with his daughter and caregiver as well. INTRAOPERATIVE FINDINGS: Gangrene extending up to the interphalangeal joint and part of the proximal phalanx. PROCEDURE IN DETAIL: After obtaining informed consent, patient was taken to the operating room. Time out was called. Preoperative photograph was taken. He was already commenced on intravenous antibiotics. The left foot, heel and leg were widely cleaned, prepped and draped in the standard fashion. Local anesthetic, 0.5% Marcaine without epinephrine was injected in the interdigital space between first and second toes and along the medial aspect of the great toe at the level of the metatarsal head. Incision was made with #15 scalpel blade. Sharp dissection was carried out through the subcutaneous tissues, tendons and synovial attachments up to the shaft of the bone. Later, incision was made on the periosteum and this was stripped cephalad. During this process, the gangrenous portion of the toe became loose and was removed from the operating field. The exposed part of the bone was further delineated and amputated with an oscillating saw. Additional samples were obtained from the proximal part of the bone for histology and cultures and sensitivities. Copious irrigation of the wound was carried out with normal saline. Later, we used pulse lavage mobile home mechanic and cleaned this wound with normal saline 3 liters mixed with 800 mg of gentamicin. There was sufficient laxity of skin and subcutaneous tissues around the bone stump. This was covered with interrupted everting sutures of 0 Vicryl and reinforced with continuous running suture of 2-0 Nylon. Upon completion, the flaps were viable and pink. Dressings consisted of Xeroform gauze, 4 x 4 gauze between the toes held in place with a Kerlix bandage, Coban and STEPHIE bandages respectively. Blood loss was 10 mL. Count of swabs, instruments and needles was reported to be correct. Operation was well tolerated. VD:alton Job ID: [id number] Doc ID: [id number] Benny SUBRAMANIAN
[2020-02-05] MEDS ORDERED: LOSARTAN 50 MG TABLET PO SCH (09:00)
[2020-02-05] MEDS ORDERED: POTASSIUM GLUCONATE 550 MG PO SCH (09:00)
--- NOTE | 2020-02-05 09:53 | Internal Med Progress Note ---
SUBJECTIVE Subjective Patient information: Note initiated : 02/05/20 at 9:49 am Service Date, if different from initiated Date: [] Patient: Jt Gann a 79 y/o M admitted on 02/03/20 for left foot problem. Chief Complaint: [ richie Gann is a 79 year old M with a hx of A fib, mitral Stenosis, COPD, FRANCESCO, Seizure disorder, Alcoholism, PAD and Chronic smoker who was admitted to hospital by wound care Dr. Santiago for dry gangrene of left great toe. Patient is a poor historian. He is a established wound care clinic patient and to have been followed by Dr. Santiago. His daughter noticed that his left leg has been red over the past few days. But when I saw this patient in his room, he denied leg pain, fever, chills, nausea, vomiting, headache, dizziness, chest pain, or dysuria. He admitted he is a current smoker but he denied drinking alcohol even though he has been abusing alcohol from his medical chart. He was a scheduled to have transmetatarsal amputation of toe tomorrow by Dr. Santiago. 02/03 Patient does not have any new complaints. He is on 3 L. X-ray left foot showed Patchy osteolysis of the first distal phalanx suspicious for osteomyelitis. He was scheduled to have transmetatarsal amputation of toe by Dr. Santiago 02/04-patient seen in room. Clear discussed with wound care Dr. Martinez. Wound appears healing well post big toe amputation. Patient continues oxygen. Minimal anxiety. Lives in [place] and will be high risk decompensation if discharged home. Discussed with case management for possible transfer to SNF in the next 24 to 48 hours. Stable hemodynamics vitals. Constitutional Vitals: Vital Signs Temp Pulse Resp BP Pulse Ox 99.2 F H 72 18 125/67 99 02/05/20 06:57 02/05/20 08:11 02/05/20 08:11 02/05/20 06:57 02/05/20 08:11 Period Temp Pulse Resp BP Sys/Min Pulse Ox Last 24 Hr 97.4 F-99.2 F 72-127 16-24 125-175/67-82 89-99 Intake and Output 02/04/20 02/05/20 02/05/20 21:59 05:59 13:59 Intake Total 480 150 Output Total 300 425 Balance 180 -275 weight t 65.363 kg Alert and oriented Post big toe amputation dressing On 3 L oxygen nonlabored breathing No anxiety Intake & Output: Intake & Output 02/04/20 02/05/20 02/05/20 21:59 05:59 13:59 Intake Total 480 150 Output Total 300 425 Balance 180 -275 Weight 65.363 kg Intake: Oral 480 150 Output: Void Amount 300 425 Other: Meal Dinner Breakfast Percent of Meal Consumed 100% 100% Feeding Ability Independent Independent Urine Appearance Clear Urine Color Bright Yellow OBJ DATA Labs CBC & Chem 7: 02/05/20 05:20 02/05/20 05:22 Labs: Abnormal Lab Results 02/05/20 02/05/20 02/04/20 05:20 05:20 05:50 RBC 4.43 L 4.52 L Gran % 82.0 H Lymph % (Auto) 5.7 L 10.7 L Lymph # (Auto) 0.54 L 0.75 L [place] # (Auto) 1.03 H Lymphocytes % Reactive Lymphocytes PT BUN POC Creatinine 0.6 L POC WB Ioniz Calcium 1.05 L Alkaline Phosphatase 200 H C-Reactive Protein NT-Pro-B Natriuret Pep 02/04/20 02/03/20 02/03/20 05:50 19:03 17:16 RBC Gran % Lymph % (Auto) Lymph # (Auto) [place] # (Auto) Lymphocytes % Reactive Lymphocytes PT 14.7 H BUN 25 H POC Creatinine POC WB Ioniz Calcium Alkaline Phosphatase 207 H 227 H C-Reactive Protein 4.0 H NT-Pro-B Natriuret Pep 1422.0 H 02/03/20 17:16 RBC Gran % Lymph % (Auto) Lymph # (Auto) [place] # (Auto) Lymphocytes % 4 L Reactive Lymphocytes 3 H PT BUN POC Creatinine POC WB Ioniz Calcium Alkaline Phosphatase C-Reactive Protein NT-Pro-B Natriuret Pep Meds: Medications Albuterol/Ipratropium (Duoneb) 3 ml NEB Q6HRT [facility] Last Admin: 02/05/20 08:07 Dose: 3 ml Documented by: Atorvastatin Calcium (Lipitor) 40 mg PO DAILY [facility] Ceftriaxone Sodium (Rocephin) 1 gm IV Q24H [facility] Diltiazem HCl (Cardizem Cd) 360 mg PO QDAY [facility] Docusate Sodium (Colace) 100 mg PO BID [facility] Last Admin: 02/04/20 21:28 Dose: 100 mg Documented by: Furosemide (Lasix) 40 mg PO QDAY [facility] Hydromorphone HCl (Dilaudid) 0.5 mg IV Q2HP PRN; Protocol PRN Reason: Per Pain Protocol Last Admin: 02/05/20 07:14 Dose: 0.5 mg Documented by: Sodium Chloride (Sodium Chloride 0.9%) 1,000 mls @ 75 mls/hr IV .[id number] [facility] Last Admin: 02/04/20 18:11 Dose: 75 mls/hr Documented by: Vancomycin HCl 1,000 mg/ (Sodium Chloride) 250 mls @ 250 mls/hr IV Q12H [facility] Last Admin: 02/04/20 21:30 Dose: 250 mls/hr Documented by: Iron Carb/Multivit/Loading Unit Operator [employer]/Folic Acid (Multivitamin W/Minerals) 1 tab PO BID [facility] Stop: 02/08/20 21:01 Last Admin: 02/04/20 21:28 Dose: 1 tab Documented by: Iron Carb/Multivit/Loading Unit Operator [place]/Folic Acid (Multivitamin W/Minerals) 1 tab PO QDAY [facility] Lorazepam (Ativan) 0.5 mg IV Q2HP PRN PRN Reason: Alcohol Withdrawal Magnesium Oxide (Magnesium Oxide) 400 mg PO QDAY [facility] Meclizine HCl (Antivert) 25 mg PO BIDP PRN PRN Reason: Nausea Last Admin: 02/04/20 19:19 Dose: 25 mg Documented by: Multivitamins/Minerals (Ocuvite) 1 tab PO BID [facility] Last Admin: 02/04/20 21:28 Dose: 1 tab Documented by: Nicotine (Nicoderm) 21 mg TOPICAL DAILY@1000 [facility] Ondansetron HCl (Zofran) 4 mg IV Q4HP PRN PRN Reason: Nausea And Vomiting Phenytoin Sodium (Dilantin) 300 mg PO DAILY [facility] Potassium Chloride (Kdur) 10 meq PO QAMCC [facility] Last Admin: 02/05/20 07:15 Dose: 10 meq Documented by: Senna (Senokot) 2 tab PO HS [facility] Last Admin: 02/04/20 21:28 Dose: 2 tab Documented by: Sodium Chloride (Saline Flush) 10 ml IV Q8 [facility] Last Admin: 02/05/20 04:12 Dose: Not Given Documented by: Thiamine HCl (Vitamin B1) 100 mg PO TID [facility] Stop: 02/06/20 21:01 Last Admin: 02/04/20 21:29 Dose: 100 mg Documented by: Tramadol HCl (Ultram) 50 - 100 mg PO Q8H PRN PRN Reason: Pain Last Admin: 02/05/20 04:33 Dose: 50 mg Documented by: Trazodone HCl (Desyrel) 50 mg PO HS [facility] Last Admin: 02/04/20 21:28 Dose: 50 mg Documented by: Vancomycin HCl (Vancomycin Per Pharmacy) 1 order IV UD [facility]; Protocol Vitamin B Complex (Vitamin B Complex) 1 cap PO BID [facility] Stop: 02/08/20 21:01 Last Admin: 02/04/20 21:28 Dose: 1 cap Documented by: Warfarin Sodium (Coumadin) 2 mg PO ONCE@1400 [facility] Stop: 02/05/20 14:01 Warfarin Sodium (Coumadin Per Pharmacy) 1 order PO UD [facility] A/P Narrative A/P Narrative: 1. 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 sheffield. Postop care as per wound care. 2. Cellulitis, left foot and leg-clinically improving. Continue Rocephin/vancomycin 3. Chronic COPD continue home oxygen at liters/bronchodilators. Continues to smoke. Counseled for cessation. 4. Atrial fibrillation-remains rate controlled on diltiazem. Continue anticoagulation on warfarin 5. HTN Continue diltiazem and STEPHIE inhibitor 6. Alcoholism-CIWA protocol,Ativan as needed 7. PAD-continue statin * DVT prophylaxis: Back on warfarin * Deposition: SNF transfer, CM consulted. Time Spent With Patient Time: Total time spent is greater than 50% in coordination of care (as documented) at patient's floor/unit and/or counseling patient: QUALITY VTE Deep Vein Thrombosis/Pulmonary Embolism Present on Admission: No
[2020-02-05 10:04] LABS: INR 1.1 (0.9-1.1); Prothrombin Time 14.3 sec (11.9-14.5)
[2020-02-05] MEDS: 0.9 % SODIUM CHLORIDE 1,000 ML IV SCH ×2 (10:05→21:28)
[2020-02-05] MEDS: cefTRIAXone 1 GM VIAL IV SCH (10:34)
[2020-02-05] MEDS: FUROSEMIDE 40 MG TABLET PO SCH (10:34)
[2020-02-05] MEDS: PHENYTOIN SOD 100 MG CAPSULE PO SCH (10:35)
[2020-02-05] MEDS: MAGNESIUM OXIDE 400 MG TABLET PO SCH (10:35)
[2020-02-05] MEDS: MULTIVIT,THER IRON,CA,FA & MIN 1 TABLET PO SCH ×3 (10:35→21:27)
[2020-02-05] MEDS: DILTIAZEM 180 MG CAP.XL.24H PO SCH (10:35)
[2020-02-05] MEDS: THIAMINE 100 MG TABLET PO SCH ×3 (10:35→21:27)
[2020-02-05] MEDS: VIT A,C & E/LUTEIN/MINERALS TABLET PO SCH ×2 (10:36→21:26)
[2020-02-05] MEDS: ATORVASTATIN 40 MG TABLET PO SCH (10:36)
[2020-02-05] MEDS: DOCUSATE SODIUM 100 MG CAPSULE PO SCH ×2 (10:36→21:27)
[2020-02-05] MEDS: NICOTINE 21 MG PATCH TOPICAL SCH (10:37)
[2020-02-05] MEDS: VITAMIN B COMPLEX 1 CAPSULE PO SCH ×2 (10:41→21:27)
[2020-02-05] MEDS: VANCOMYCIN 1,000 MG in 0.9 % SODIUM CHLORIDE 250 ML IV SCH ×2 (12:17→21:26)
[2020-02-05] MEDS ORDERED: WARFARIN 2 MG TABLET PO ONE (14:00)
--- NOTE | 2020-02-05 19:37 | General Surgery Progress Note ---
SUBJECTIVE Subjective Patient information: Note initiated : 02/05/20 at 7:27 pm Service Date, if different from initiated Date: [] Patient: Jt Gann 79 y/o M admitted on 02/03/20 for left foot problem. Chief Complaint: [] Additional PMFSH (Level 3 Only): I saw patient on rounds along with Jaqueline ALLEN, Inpatient wound care nurse. Reviewed progress with hospitalist Physician Dr. Lewis and RN on floor. Patient reports feeling well and denies any acute cosntitutonal or systemis symptoms. Had an unusual night. Constitutional Vitals: Vital Signs Temp Pulse Resp BP Pulse Ox 98.6 F 86 22 127/69 88 L 02/05/20 16:00 02/05/20 16:00 02/05/20 16:00 02/05/20 16:00 02/05/20 16:00 Period Temp Pulse Resp BP Sys/Min Pulse Ox Last 24 Hr 97.5 F-99.2 F 72-105 18-24 125-144/67-80 88-99 Intake and Output 02/05/20 02/05/20 02/05/20 05:59 13:59 21:59 Intake Total 400 1240 570 Output Total 425 150 Balance -25 1090 570 Intake & Output: Intake & Output 02/05/20 02/05/20 02/05/20 05:59 13:59 21:59 Intake Total 400 1240 570 Output Total 425 150 Balance -25 1090 570 Intake: IV 250 1000 Sodium Chloride 0.9% 1,000 ml @ 1000 75 mls/hr IV .[id number] [facility] Rx#: [id number] Vancomycin 1,000 mg In Sodium 250 Chloride 0.9% 250 ml @ 250 mls/ hr IV Q12H [facility] Rx#:[id number] Oral 150 240 570 Output: Void Amount 425 150 Other: Meal Breakfast Dinner Percent of Meal Consumed 100% 50% Feeding Ability Independent Independent Urine Appearance Cloudy Urine Color Light Lucy Urine Odor Strong General appearance: cooperative and no acute distress Exam: AVSS. Sitting up by edge of bed. MARTIR unremarkable. L/E: Surgical site dressings are CDI. Exposed toe tips are CDI. Reviewed lab results. A/P Narrative A/P Narrative: Assessment: Satisfactory post surgical progress. Microbiology culture reports pending. Patient is at high risk for post operative complications . He needs close observation in a rehab or SNF at least for short term. Plan: Await input form CM and SW for discharge planning in next 48-72 hours. Time Spent With Patient Time: Total time spent is greater than 50% in coordination of care (as documented) at patient's floor/unit and/or counseling patient: Total time spent with greater than 50% in coordination of care (as documented) at patient's floor/unit and/or counseling patient:: 15 - 24 minutes
[2020-02-05] MEDS: SENNOSIDES 1 TABLET PO SCH (21:27)
[2020-02-05] MEDS: traZODone HCL 50 MG TABLET PO SCH (21:27)
[2020-02-05] MEDS: GABAPENTIN 100 MG CAPSULE PO SCH (21:27)
[2020-02-06] MEDS: IPRATROPIUM/ALBUTEROL 3 ML AMPUL.NEB NEB SCH ×2 (00:56→06:50)
[2020-02-06 06:37] LABS: Basophils # (Auto) 0.03 K/mcL (0.00-0.30); Basophils % (Auto) 0.3 % (0.0-2.0); Eosinophils # (Auto) 0.01 K/mcL (0.00-0.70); Eosinophils % (Auto) 0.1 % (0.0-7.0); Granulocytes % (Auto) 84.5 % (38.0-78.0); Hematocrit 43.8 % (40.1-51.0); Hemoglobin 14.4 g/dL (13.7-17.5); Lymphocytes # (Auto) 0.48 K/mcL (1.50-4.80); Lymphocytes % (Auto) 4.8 % (15.5-49.0); Mean Cell Volume 98.2 fL (80.0-100.0); Mean Corpuscular HGB Conc 32.9 g/dL (31.0-36.0); Mean Platelet Volume 9.3 fL (7.4-10.4); Monocytes # (Auto) 1.02 K/mcL (0.10-0.90); Monocytes % (Auto) 10.3 % (1.0-12.0); Platelet Count 157 K/mcL (140-440); RBC 4.46 M/mcL (4.63-6.08); Red Cell Distribution Width 14.4 % (11.5-14.5); WBC 9.9 K/mcL (4.50-11.00)
[2020-02-06 06:55] LABS: INR 1.1 (0.9-1.1); Prothrombin Time 14.7 sec (11.9-14.5)
[2020-02-06 06:57] LABS: Chloride 97 mmol/L (96-108)
[2020-02-06] MEDS: 0.9 % SODIUM CHLORIDE 10 ML SYRINGE IV SCH (07:01)
[2020-02-06 07:13] LABS: ALT/SGPT 30 U/l (0-40); AST/SGOT 36 U/l (0-37); Albumin 3.8 gm/dL (3.2-5.2); Albumin/Globulin Ratio 1.2 (1.0-2.3); Alkaline Phosphatase 206 U/L (39-117); Bilirubin,Total 0.9 mg/dL (0.0-1.0); Blood Urea Nitrogen 19 mg/dl (8-23); Calcium 8.8 mg/dl (8.6-10.4); Carbon Dioxide 22 mmol/L (22-30); Globulin 3.2 gm/dL (2.2-3.7); Glomerular Filtration Rate 84; Glucose 120 mg/dL (70-105)
[2020-02-06] MEDS: FUROSEMIDE 40 MG TABLET PO SCH (07:24)
--- NOTE | 2020-02-06 09:19 | Discharge Summary ---
Discharge Provider Provider Patient information: Note initiated : 02/06/20 at 9:14 am Service Date, if different from initiated Date: [] Patient: Jt Gann a 79 y/o M admitted on 02/03/20 for left foot problem. Discharge diagnosis 1. 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 sheffield. Postop care as per wound care. 2. Cellulitis, left foot and leg-clinically improving. Continue Rocephin/vancomycin 3. Chronic COPD continue home oxygen at liters/bronchodilators. Continues to smoke. Counseled for cessation. 4. Atrial fibrillation-remains rate controlled on diltiazem. Continue anticoagulation on warfarin 5. HTN Continue diltiazem and STEPHIE inhibitor 6. Alcoholism-CIWA protocol,Ativan as needed 7. PAD-managed on statin Brief hospital course Azeem is a 79 year old M with a hx of A fib, mitral Stenosis, COPD, FRANCESCO, Seizure disorder, Alcoholism, PAD and Chronic smoker who was admitted to hospital by wound care Dr. Santiago for dry gangrene of left great toe. Patient is a poor historian. He is a established wound care clinic patient and to have been followed by Dr. Santiago. His daughter noticed that his left leg has been red over the past few days. But when I saw this patient in his room, he denied leg pain, fever, chills, nausea, vomiting, headache, dizziness, chest pain, or dysuria. He admitted he is a current smoker but he denied drinking alcohol even though he has been abusing alcohol from his medical chart. He was a scheduled to have transmetatarsal amputation of toe tomorrow by Dr. Santiago. 02/03 Patient does not have any new complaints. He is on 3 L. X-ray left foot showed Patchy osteolysis of the first distal phalanx suspicious for osteomyelitis. He was scheduled to have transmetatarsal amputation of toe by Dr. Santiago 02/04-patient seen in room. Clear discussed with wound care Dr. Martinez. Wound appears healing well post big toe amputation. Patient continues oxygen. Minimal anxiety. Lives in [place] and will be high risk decompensation if discharged home. Discussed with case management for possible transfer to SNF in the next 24 to 48 hours. Stable hemodynamics vitals. 02/05-patient discharging home with advised to continue oral clindamycin for additional 5 days. Continue wound care follow-up. Continue oxygen to maintain sats around 88%. Refrain from smoking and alcohol. Date of admission: 02/03/20 19:51 Discharge date: 02/06/20 Primary care physician: Steve Francis Consults: 02/03/20 19:00 Consult to Physician [CONS] Stat Comment: Consulting Provider: Reshma Rea Reason For Exam: Physician to Consult 02/03/20 19:59 Consult to Physician [CONS] Routine Comment: Consulting Provider: Benny Martinez Reason For Exam: Physician to Consult Discharge Meds Discharge Medications Home Medications PreserVision AREDS-2 1 tab PO BID 01/29/20 [History Confirmed 02/03/20 Last Taken 02/03/20] diltiazem HCl 360 mg PO QDAY 01/29/20 [History Confirmed 02/03/20 Last Taken 02/03/20] furosemide 40 mg PO QDAY 01/29/20 [History Confirmed 02/03/20 Last Taken 02/02/20] magnesium oxide 400 mg PO QDAY 01/29/20 [History Confirmed 02/03/20 Last Taken 02/03/20] meclizine 25 mg PO BID PRN 01/29/20 [History Confirmed 02/03/20 Last Taken 02/03/20] multivitamin with minerals [Daily Multivitamin-Minerals] 1 tab PO QDAY 01/29/20 [History Confirmed 02/03/20 Last Taken 02/03/20] phenytoin sodium extended 300 mg PO DAILY 01/29/20 [History Confirmed 02/03/20 Last Taken 02/03/20] potassium chloride 10 meq PO QDAY 01/29/20 [History Confirmed 02/03/20 Last Taken 02/03/20] potassium gluconate 550 mg PO QDAY 01/29/20 [History Confirmed 02/03/20 Last Taken 02/03/20] tramadol 50 - 100 mg PO Q8H PRN 01/29/20 [History Confirmed 02/03/20 Last Taken 02/03/20] trazodone 50 mg PO HS 01/29/20 [History Confirmed 02/03/20 Last Taken 02/02/20] valsartan 80 mg PO QDAY 01/29/20 [History Confirmed 02/03/20 Last Taken 02/03/20] warfarin 2 mg PO QDAY 01/29/20 [History Confirmed 02/03/20 Last Taken 01/31/20] atorvastatin 40 mg PO DAILY #30 tab 02/06/20 [Rx Last Taken Unknown] clindamycin HCl 300 mg PO Q8 #15 cap 02/06/20 [Rx Last Taken Unknown] gabapentin 100 mg PO TID #60 cap 02/06/20 [Rx Last Taken Unknown] sennosides [Senna Lax] 2 tab PO HS #30 tab 02/06/20 [Rx Last Taken Unknown] COURSE Hospital Course Hospital course: . Discharge diagnosis: . Time Spent with Patient Time attestation: Total time spent providing and/or coordinating discharge services: EXAM Constitutional Vitals: Temp Pulse Resp BP Pulse Ox 97.4 F 78 20 131/79 92 02/06/20 07:19 02/06/20 07:41 02/06/20 07:41 02/06/20 07:19 02/06/20 07:41 Discharge Data Data Completed and Pending Labs on day of discharge: Labs from last 24 hours 02/06/20 02/06/20 02/06/20 05:29 05:29 05:29 WBC 9.9 RBC 4.46 L Hgb 14.4 Hct 43.8 MCV 98.2 MCH 32.3 MCHC 32.9 RDW 14.4 Plt Count 157 MPV 9.3 Gran % 84.5 H Lymph % (Auto) 4.8 L Frio % (Auto) 10.3 Eos % (Auto) 0.1 Baso % (Auto) 0.3 Gran # 8.39 H Lymph # (Auto) 0.48 L Frio # (Auto) 1.02 H Eos # (Auto) 0.01 Baso # (Auto) 0.03 PT 14.7 H INR 1.1 Sodium 136 Potassium 4.8 Chloride 97 Carbon Dioxide 22 Anion Gap 17.0 H BUN 19 Creatinine 0.8 GFR Calculation 84 Glucose 120 H Calcium 8.8 Total Bilirubin 0.9 AST 36 ALT 30 Alkaline Phosphatase 206 H Total Protein 7.0 Albumin 3.8 Globulin 3.2 Albumin/Globulin Ratio 1.2 Vancomycin Trough 02/05/20 02/05/20 09:01 09:01 WBC RBC Hgb Hct MCV MCH MCHC RDW Plt Count MPV Gran % Lymph % (Auto) Frio % (Auto) Eos % (Auto) Baso % (Auto) Gran # Lymph # (Auto) Frio # (Auto) Eos # (Auto) Baso # (Auto) PT 14.3 INR 1.1 Sodium Potassium Chloride Carbon Dioxide Anion Gap BUN Creatinine GFR Calculation Glucose Calcium Total Bilirubin AST ALT Alkaline Phosphatase Total Protein Albumin Globulin Albumin/Globulin Ratio Vancomycin Trough 13.1 Preliminary micro results at discharge 02/03/20 17:13 Blood Culture - Preliminary Blood 02/03/20 17:26 Blood Culture - Preliminary Blood 02/04/20 16:40 Tissue Culture - Preliminary Toe - First Discharge Plan Patient/Caregiver Discharge Instructions Activity: increase activity as tolerated Diet: Regular Diet Activity Restrictions/Additional Instructions: Follow-up PCP in [5] days Follow-up with wound care Dr. Martinez as advised by wound physician Continue Coumadin dosing based on INR 2 managed by primary care physician I recommend PCP to check INR/CBC BMP UA as a posthospital follow-up in 1 week Antibiotics for additional 5 days oral clindamycin oxygen @3 L to maintain sats around 88% L Continue aggressive bowel regimen to prevent constipation Continue fall precautions High protein calorie supplements All meals on chair sitting upright at 90 degrees to prevent aspiration Return to ER if worsening fever chills shortness of breath, diarrhea, bleeding Reviewed risk and side effect profile of medications including antibiotics. Side effect may include mild to severe reaction including rash, diarrhea, cdiff which can be prevented by close follow-up with PCP and monitoring for side effects Refrain from smoking and alcohol Continue diet and activity as advised Discussed importance of medication adherence Please review medication list with patient prior to discharge Please schedule follow-up with PCP/Providers prior to discharge and provide printouts Prescriptions: New atorvastatin 40 mg Tablet 40 mg PO DAILY Qty: 30 RF: 0 sennosides [Senna Lax] 8.6 mg Tablet 2 tab PO HS Qty: 30 RF: 0 gabapentin 100 mg Capsule 100 mg PO TID Qty: 60 RF: 0 clindamycin HCl 300 MG capsule 300 mg PO Q8 Qty: 15 RF: 0 Continued furosemide 40 mg Tablet 40 mg PO QDAY RF: 0 potassium chloride 10 mEq Capsule, Extended Release 10 meq PO QDAY RF: 0 trazodone 50 mg Tablet 50 mg PO HS RF: 0 valsartan 80 mg Tablet 80 mg PO QDAY RF: 0 diltiazem HCl 360 mg Capsule,Extended Release 24 Hr 360 mg PO QDAY RF: 0 phenytoin sodium extended 100 mg Capsule 300 mg PO DAILY RF: 0 tramadol 50 mg Tablet 50 - 100 mg PO Q8H PRN (Reason: Pain) RF: 0 magnesium oxide 400 mg (241.3 mg magnesium) Tablet 400 mg PO QDAY RF: 0 meclizine 25 mg Tablet 25 mg PO BID PRN (Reason: Nausea) RF: 0 warfarin 2 mg Tablet 2 mg PO QDAY RF: 0 multivitamin with minerals [Daily Multivitamin-Minerals] Tablet 1 tab PO QDAY RF: 0 potassium gluconate 550 mg (90 mg) Tablet 550 mg PO QDAY RF: 0 PreserVision AREDS-2 [id number] Capsule 1 tab PO BID RF: 0 Follow Up Plan Follow up with: Steve Francis MD [Primary Care Provider] - Patient Disposition: Home, Self-Care Prognosis: Fair Discharge Orders: Discharge Order (Routine); Ordered 02/06/20 Ordered By: Stepan QUISPE VTE Deep Vein Thrombosis/Pulmonary Embolism Present on Admission: No
[2020-02-06] MEDS: DILTIAZEM 180 MG CAP.XL.24H PO SCH (10:54)
[2020-02-06] MEDS: NICOTINE 21 MG PATCH TOPICAL SCH (10:55)
[2020-02-06] MEDS: VIT A,C & E/LUTEIN/MINERALS TABLET PO SCH (10:55)
[2020-02-06] MEDS: ATORVASTATIN 40 MG TABLET PO SCH (10:55)
[2020-02-06] MEDS: POTASSIUM CHLORIDE 10 MEQ TABLET PO SCH (10:55)
[2020-02-06] MEDS: DOCUSATE SODIUM 100 MG CAPSULE PO SCH (10:56)
[2020-02-06] MEDS: MAGNESIUM OXIDE 400 MG TABLET PO SCH (10:56)
[2020-02-06] MEDS: GABAPENTIN 100 MG CAPSULE PO SCH (10:56)
[2020-02-06] MEDS: MULTIVIT,THER IRON,CA,FA & MIN 1 TABLET PO SCH ×2 (10:57)
[2020-02-06] MEDS: PHENYTOIN SOD 100 MG CAPSULE PO SCH (11:00)
[2020-02-06] MEDS: VITAMIN B COMPLEX 1 CAPSULE PO SCH (11:01)
[2020-02-06] MEDS: THIAMINE 100 MG TABLET PO SCH (11:02)
[2020-02-06] MEDS: cefTRIAXone 1 GM VIAL IV SCH (11:02)
[2020-02-06] MEDS: 0.9 % SODIUM CHLORIDE 1,000 ML IV SCH (11:02)
--- NOTE | 2020-02-06 13:01 | General Surgery Progress Note ---
SUBJECTIVE Subjective Patient information: Note initiated : 02/06/20 at 12:56 pm Service Date, if different from initiated Date: [] Patient: Jt Gann 79 y/o M admitted on 02/03/20 for left foot problem. Chief Complaint: [] Additional PMFSH (Level 3 Only): Saw patient on rounds with Jaqueline ALLEN. Inpatient wound care nurse. Post surgical dressing changed and wound examined. Constitutional Vitals: Vital Signs Temp Pulse Resp BP Pulse Ox 98.0 F 80 24 H 114/60 93 02/06/20 12:00 02/06/20 12:00 02/06/20 12:00 02/06/20 12:00 02/06/20 12:00 Period Temp Pulse Resp BP Sys/Min Pulse Ox Last 24 Hr 97.4 F-99.1 F 78-118 19-24 114-164/60-80 88-93 Intake and Output 02/05/20 02/06/20 02/06/20 21:59 05:59 13:59 Intake Total 570 450 Output Total 225 450 800 Balance 345 0 -800 Weight 146 lb 4.8 oz Intake & Output: Intake & Output 02/05/20 02/06/20 02/06/20 21:59 05:59 13:59 Intake Total 570 450 Output Total 225 450 800 Balance 345 0 -800 Weight 146 lb 4.8 oz Intake: Oral 570 450 Output: Void Amount 225 450 800 Other: Meal Dinner Percent of Meal Consumed 50% Feeding Ability Independent Urine Appearance Clear Clear Clear Urine Color Dark Yellow Dark Yellow Dark Yellow Urine Odor Strong Exam: AVSS. Comfortable, cooperative and happy. Keen to go home. No changes MARTIR. L/E. Resolving post surgical changes. Wound edges well approximated. Resolving edema. NO necrosis and NO odor. NO purulence. Toes 2-5 PWD A/P Narrative A/P Narrative: Assessment: Satisfactory post surgical progress. Post op wound care instructions per RN. plan: F/u at the wound center within a week after discharge. Time Spent With Patient Time: Total time spent is greater than 50% in coordination of care (as do cumented) at patient's floor/unit and/or counseling patient: Total time spent with greater than 50% in coordination of care (as documented) at patient's floor/unit and/or counseling patient:: 25 - 35 minutes
[2020-02-06] MEDS ORDERED: WARFARIN 2 MG TABLET PO ONE (14:00)
[2020-02-06] MEDS: VANCOMYCIN 1,000 MG in 0.9 % SODIUM CHLORIDE 250 ML IV SCH (15:32)
--- NOTE | 2020-02-07 12:53 | Surgical Pathology Report ---
HISTOLOGY SPECIMEN MICROSCOPIC DIAGNOSIS SPECIMEN A - BONE, WITH CARTILAGE PROXIMAL LEFT GREAT TOE, AMPUTATION: -- ACUTE OSTEOMYELITIS. -- MARGIN FREE OF OSTEOMYELITIS. SPECIMEN B - LEFT GREAT TOE, AMPUTATION: -- DEVITALIZED BONE WITH MULTIPLE FOCI OF BACTERIAL OVERGROWTH. -- NECROTIZING ACUTE INFLAMMATION INVOLVING SKIN AND SOFT TISSUE AT THE INKED MARGIN. (EBD:sln) CLINICAL HISTORY Sepsis, gangrene of left great toe. GROSS DESCRIPTION Specimen A: Received in formalin labeled proximal bone cartilage, is a segment of white-strickland bone measuring 2 x 1.8 x 1 cm. One end is a cut margin and the other is a smooth articular surface. Tool Supervisor sections in one cassette, following decalcification. Specimen B: Received in formalin labeled left great toe, is a brown-strickland to black-strickland great toe that is absent a nail and measures 4.5 cm proximal to distal by 3 cm side to side by 2.5 cm plantar-dorsal. The majority of the skin surface is sloughed and the soft tissue is brown-strickland to firm black-strickland. There is a thin rim of fairly normal appearing strickland tissue at the proximal margin. The margin is inked black. A complete cross section is submitted following decalcification: B1 - distal; B2 - proximal. (RLF:sln) Electronically Signed by: Tracie Anderson M.D.
== END 2020-02-06 14:45 | disposition home or self-care (01) | DRG 504 ==
LOC: MEDSUR 16:02 → ED 16:02 → MEDSUR 19:51 → OBSVTOIN 19:51
PROVIDERS: ADMIT Internal Medicine; ATTEND Internal Medicine